=== PATIENT | female | born 1960 | race Caucasian/White ===

== ENCOUNTER 2021-01-19 14:51 | Emergency (ER) | payer SELFPAY ==
[2021-01-19 14:56] VITALS: BP 121/81; PULSE 105; RESP 16; TEMP 36.5; O2SAT 100; BMI 20.5
--- NOTE | 2021-01-19 15:29 | ED_ITS ---
Documented by User: FADI Suazo 01/20/21 07:40 HPI - Back Pain/Injury General: Chief Complaint: Back Pain/Injury Stated Complaint: Back pain right ear pain Time Seen by Provider: 01/19/21 15:27 Source: patient Mode of arrival: wheelchair Limitations: no limitations History of Present Illness: HPI Narrative: Patient is a nice 60-year-old female who presents to ED today with 2 separate complaints. Her first complaint is right ear pain. She tells me she woke up this morning and noticed her pillow had drainage on it from her ear. She then began noticing that her ear hurt. When asked she does remember yesterday feeling like her ear was muffled and was having trouble hearing. She has not inserted anything into the ear to cause trauma. She has not noticed any bleeding from the ear. Patient second complaint is left-sided back pain. Significant other with patient tells me that several days ago she was raking and doing a lot of yard work and subsequently developed pain in her back. Patient tells me pain starts in the left side of her lower back and radiates around into her left groin. She does not complain of inguinal or genital paresthesias. She has some mild radiation into her left lateral leg above the knee. She has not noticed any color or temperature changes to her lower extremities. No complaints of urinary retention or bowel incontinence. Pain seems to be worse with movement. MD elicited complaint: back pain and other (ear pain) Onset (ago): day(s) Timing: constant Severity: severe Similar Symptoms Previously: No Location: left lower back Radiation: groin Exacerbating factors: movement, walking, coughing/sneezing and lifting Associated symptoms: Reports difficulty walking (secondary to pain); Deny abdominal pain, chills, dysuria, fatigue, fever(s), hematuria, nausea or vomiting Work related injury: Yes Review of Systems Const: Denies: fever(s), chills, body aches, fatigue or malaise Eyes: Denies: change in vision, blurry vision, photophobia, eye redness, floaters or seeing flashes ENMT: Reports: ear or mastoid pain and ear discharge; Denies: throat pain, odynophagia, dental pain, nasal discharge, nasal congestion, epistaxis, post nasal drip or sinus pain Card: Denies: chest pain Resp: Denies: dyspnea GI: Denies: abdominal pain, nausea, vomiting or diarrhea : Denies: flank pain, dysuria, hematuria or pelvic pain Musc: Reports: back pain; Denies: neck pain, extremity pain, extremity swelling, joint pain or joint swelling Skin/Breast: Denies: rash Neuro: Reports: difficulty walking (secondary to pain); Denies: headache(s), numbness in extremities, weakness in extremities, sensory changes or dizziness PFSH ED PFSH: Medical History (Updated 01/19/21 @ 16:51 by FADI Suazo) Asthma Surgical History (Updated 01/19/21 @ 13:21 by HAFSA Ying) S/P tonsillectomy S/P tracheoplasty S/P tubal ligation Social History (Updated 01/19/21 @ 13:22 by HAFSA Ying) Alcohol intake: never Highest education level completed: 10th Grade Current occupational status: unemployed Physical Exam Const: COMMON NORMALS: average body habitus, patient oriented x3, no limitations, healthy appearing, alert and well nourished GENERAL APPEARANCE: cooperative and in distress (appears very uncomfortable secondary to back pain) ORIENTATION/CONSCIOUSNESS: Yes awake, Yes oriented to person, Yes oriented to place and Yes oriented to time HENMT: COMMON NORMALS: normocephalic, atraumatic, external ears normal, Normal external nose present, Normal nasal mucous membranes and turbinates present and oropharynx normal HEAD & SCALP: normal to inspection, normocephalic and atraumatic FACE & SINUS: normal facial exam NOSE: Normal external nose present and Normal nasal mucous membranes and turbinates present EXTERNAL EAR: Yes external ears normal EXTERNAL AUDITORY CANAL: Abnormal EAC present EAC laterality: right Details: edema, EAC tenderness and otic discharge (white material throughout EAC obscuring TM) TYMPANIC MEMBRANE: TM normal on the left and unable to visualize TM (R secondary to EAC edema/discharge) Neck/C-Spine: COMMON NORMALS: full ROM, no lymphadenopathy and no meningeal signs Resp: COMMON NORMALS: normal respiratory effort and clear to auscultation bilaterally AUSCULTATION: clear to auscultation bilaterally Cardio: COMMON NORMALS: regular rate and regular rhythm RATE: regular rate RHYTHM: regular rhythm GI: COMMON NORMALS: Normal to inspection, nondistended, normoactive bowel sounds present, Soft to palpation, non-tender, No hepatosplenomegaly present and no masses AUSCULTATION: Yes normoactive bowel sounds PALPATION: Yes Soft to palpation and Yes No hepatosplenomegaly present : COMMON NORMALS: Yes no CVA tenderness BLADDER/KIDNEY EXAM: Yes no CVA tenderness Back/Pelvis: COMMON NORMALS: no CVA tenderness THORACIC SPINE/UPPER BACK: Yes normal to inspection, No thoracic spinal tenderness, No paraspinal muscle tenderness and No paraspinal muscle spasm LUMBAR SPINE/LOWER BACK: Yes lumbar spinal tenderness, Yes paraspinal muscle tenderness Lumbar paraspinal muscle tenderness: left and No paraspinal muscle spasm PELVIS: Yes buttocks normal Extremity: COMMON NORMALS: normal to inspection, full ROM, capillary refill normal, no joint enlargement, no clubbing, cyanosis or edema, no calf tenderness and no pedal edema NARRATIVE EXTREMITY EXAM: normal bilateral femoral pulses and distal pulses Neuro: ELLIOTT COMA SCALE: document GCS findings [place] coma scale eye o pening: Spontaneous Elliott coma scale verbal response: Orientated Elliott coma scale motor response: Obey commands [place] coma scale total score: 15 COMMON NORMALS: patient oriented x3, moves all extremities, no focal motor deficits and no sensory deficits noted SENSORIUM/ORIENTATION: Yes alert, Yes oriented to person, Yes oriented to place and Yes oriented to time MENINGEAL SIGNS: Yes no meningeal signs Skin: COMMON NORMALS: no rashes or lesions noted GENERAL SKIN EXAM: no rashes or lesions noted TRAUMA: no lacerations or abrasions Course Vital Signs: Vital signs: Vital Signs Temperature 97.7 F 01/19/21 14:56 Pulse Rate 82 01/19/21 17:30 Respiratory Rate 16 01/19/21 17:30 Blood Pressure 153/99 01/19/21 17:30 Pulse Oximetry 96 01/19/21 17:30 MDM - Back Pain/Injury MDM Narrative: Medical decision making narrative: Patient on exam has a right otitis externa. TM is obscured. We will go ahead and place patient on Cipro HC otic drops and Augmentin. Patient received muscle relaxers, anti- inflammatories, and steroids here for her back pain. Pain down from a 10/10 to a 1/10 and she feels much better and is ready to go home at this time. No neurological defects on exam or red flags on history to prompt emergent imaging today. Recommend follow-up with her primary care provider in 3 to 5 days for reevaluation of both issues.return to ED precautions given. Discharge Plan Discharge Patient Disposition: Home Clinical Impression: Acute lumbar radiculopathy External otitis of right ear Qualifiers: Otitis externa type: unspecified type Chronicity: acute Qualified Code(s): H60.501 - Unspecified acute noninfective otitis externa, right ear Condition: Stable Prescriptions: New Cipro HC 0.2-1 % drops,suspension 3 drp otic (ear) BID 7 Days Qty: 10 RF: 0 cyclobenzaprine 10 mg tablet 10 mg PO TID Qty: 14 RF: 0 prednisone 10 mg tablet 60 mg PO DAILY 5 Days Qty: 30 RF: 0 ibuprofen 800 mg tablet 800 mg PO Q8H PRN (Reason: pain) Qty: 20 RF: 0 Augmentin 875-125 mg tablet 1 tab PO Q12H 7 Days Qty: 14 RF: 0 Discontinued naproxen 500 mg tablet 500 mg PO BID RF: 0 Discharge Orders: Discharge ED (Routine); Ordered 01/19/21 Ordered By: Emma Farrell Referrals: GALINDO Gay, MARQUETRY WORKER [Primary Care Provider] - Patient Instructions: Otitis Externa - Adult, Lumbar Radiculopathy (ED) Activity Restrictions/Additional Instructions: As we discussed we will place you on antibiotics and eardrops for the right ear infection. This complaint is unrelated to your lower back pain. We will place you on anti-inflammatories, steroids, and muscle relaxers regarding this. Please follow-up with your primary care clinic in 3 to 5 days for reevaluation. You may return to the emergency department for any worsening pain or new/concerning symptoms you may have. I hope you begin to feel better soon. Stand Alone Forms: Work/School Release Coding Level of Care Code ED Business Asst for Chg Fwd Exam Comprehensive Documented by User: Garett Gaviria MD 01/22/21 22:51 HPI - Back Pain/Injury General: Chief Complaint: Back Pain/Injury Stated Complaint: Back pain right ear pain Time Seen by Provider: 01/19/21 15:27 PFSH ED PFSH: Medical History (Updated 01/19/21 @ 16:51 by FADI Suazo) Asthma Surgical History (Updated 01/19/21 @ 13:21 by HAFSA Ying) S/P tonsillectomy S/P tracheoplasty S/P tubal ligation Social History (Updated 01/19/21 @ 13:22 by HAFSA Ying) Alcohol intake: never Highest education level completed: 10th Grade Current occupational status: unemployed Course Vital Signs: Vital signs: Vital Signs Temperature 97.7 F 01/19/21 14:56 Pulse Rate 82 01/19/21 17:30 Respiratory Rate 16 01/19/21 17:30 Blood Pressure 153/99 01/19/21 17:30 Pulse Oximetry 96 01/19/21 17:30 MDM - Back Pain/Injury MDM Narrative: Medical decision making narrative: I have reviewed this encounter performed by FADI Suazo. Garett Gaviria MD Emergency Medicine Discharge Plan Discharge Patient Disposition: Home Clinical Impression: Acute lumbar radiculopathy External otitis of right ear Qualifiers: Otitis externa type: unspecified type Chronicity: acute Qualified Code(s): H60.501 - Unspecified acute noninfective otitis externa, right ear Condition: Stable Prescriptions: New Cipro HC 0.2-1 % drops,suspension 3 drp otic (ear) BID 7 Days Qty: 10 RF: 0 cyclobenzaprine 10 mg tablet 10 mg PO TID Qty: 14 RF: 0 prednisone 10 mg tablet 60 mg PO DAILY 5 Days Qty: 30 RF: 0 ibuprofen 800 mg tablet 800 mg PO Q8H PRN (Reason: pain) Qty: 20 RF: 0 Augmentin 875-125 mg tablet 1 tab PO Q12H 7 Days Qty: 14 RF: 0 Discontinued naproxen 500 mg tablet 500 mg PO BID RF: 0 Discharge Orders: Discharge ED (Routine); Ordered 01/19/21 Ordered By: Emma Farrell Referrals: GALINDO Gay FNP [Primary Care Provider] - Patient Instructions: Otitis Externa - Adult, Lumbar Radiculopathy (ED) Activity Restrictions/Additional Instructions: As we discussed we will place you on antibiotics and eardrops for the right ear infection. This complaint is unrelated to your lower back pain. We will place you on anti-inflammatories, steroids, and muscle relaxers regarding this. Please follow-up with your primary care clinic in 3 to 5 days for reevaluation. You may return to the emergency department for any worsening pain or new/concern ing symptoms you may have. I hope you begin to feel better soon. Stand Alone Forms: Work/School Release Coding Level of Care Code ED Business Asst for Tierney Fwd Exam Comprehensive
[2021-01-19] MEDS: ketorolac 30 mg/mL INJ IVP (16:14)
[2021-01-19 16:16] VITALS: RESP 20
[2021-01-19] MEDS: morphine 4 mg/mL SDV 1 mL IVP (16:16)
[2021-01-19] MEDS: dexamethasone 10 mg/mL INJ 8 MG IV (16:20)
[2021-01-19] MEDS: orphenadrine 30 mg/mL Inj 2 mL 60 MG IV (16:21)
[2021-01-19 17:30] VITALS: BP 153/99; PULSE 82; RESP 16; O2SAT 96
== END 2021-01-19 17:31 | disposition home or self-care (01) ==
PROVIDERS: Emergency Provider Physician Assistant; PCP Nurse Practitioner Family
DX: H60.501 Unspecified acute noninfective otitis externa, right ear (principal); M54.16 Radiculopathy, lumbar region
CPT/HCPCS: 96374; 96375; 99284; J1100; J1885; J2270; J2360

== ENCOUNTER 2021-02-01 21:16 | Emergency (ER) | payer SELFPAY ==
[2021-02-01 21:17] VITALS: BP 174/85; PULSE 118; RESP 18; TEMP 37.1; O2SAT 98; BMI 19.2
--- NOTE | 2021-02-01 21:57 | PC.NURSE ---
Assisted Dr. Arias with an injection to the lower back. Betadine used to sterilized area. sterile techniques used.
--- NOTE | 2021-02-01 22:24 | ED_ITS ---
HPI - General Adult General: Chief complaint: Back Pain/Injury Stated complaint: back pain Time Seen by Provider: 02/01/21 21:31 History of Present Illness: HPI narrative: CC: Back pain HPI: [60]yo patient w/ hx of prior evaluation for L-sided lumbar back pain presenting to the ED with acutely worsening chronic atraumatic back pain x 13 days. Pain started today after patient patient twisted her back. Patients denies trauma/fall to the back, fever/chill/IVDU, LE weakness, saddle anesthesia/bowel incontinence/bladder incontinence, or hx of recent weight loss or cancer. In addition, he does not have a history of kidney stone or urinary symptoms/hx of UTI. Onset: chronic, acutely worsening symptoms x 13 days Duration: acutely 1 day, chronically 13 days Location: Back pain with mild radiation down the L leg Severity: moderate Review of Systems Narrative: Constitutional: No fever, no chills. HEENT: No vision changes CV: No chest pain, no palpitations PULM: No cough, no dyspnea. GI: No abdominal pain, no N/V/D. : No dysuria MSKEL: No edema SKIN: No new rashes, no lesions. NEURO: No headache, no focal weakness. HEME: No visible bruises PSYCH: Normal mood BACK: L-sided lumbar paraspinal pain PFSH ED PFSH: Medical History (Updated 02/01/21 @ 21:59 by Zen Arias MD) Asthma Surgical History (Updated 01/19/21 @ 13:21 by HAFSA Ying) S/P tonsillectomy S/P tracheoplasty S/P tubal ligation Social History (Updated 01/19/21 @ 13:22 by HAFSA Ying) Alcohol intake: never Highest education level completed: 10th Grade Current occupational status: unemployed Physical Exam Narrative: EXAM NARRATIVE: Head: Atraumatic Eyes: PERRL, conjunctiva without injection ENT: Mucous membrane moist NECK: Supple without lymphadenopathy LUNGS: CTA CV: RRR ABDOMEN: Soft, nontender EXTREMITY: Normal ROM, 5/5 strength in hip/knee/ankle f/e bilaterally, sensation intact bilaterally in the LE SKIN: No rash or erythema NEURO: Awake and alert. No focal motor deficits. PSYCH: Normal mood and affect. : No saddle anesthesia BACK: No midline tenderness, no step off, obvious deformity, hip stable, []paraspinal lumbar tenderness with radiation to the [] side Procedures Nerve Block Nerve Block 1: Time out performed: Yes Local Anesthetic: lidocaine 1%, bupivacaine 0.5% and with epi Amount of anesthesia used (mL): 10 Side: left Nerve Blocks: other (paraspinal trigger point injection) Procedure Successful: Yes Patient Tolerated Procedure: well Complications: none Additional Comments: In service was successfully cleaned with chlorhexidine. Sterile rules were used for the procedure. Laceration tray was opened. 40 mg of Kenalog was mixed with 5 mL of 0.5 ropivacaine with epi and 5ml 1% lidocaine with epi. Mixture was sterilely injected to multiple areas of knots on the left paraspinal back. Patient has significant relief of pain. Post injection, the area was cleared again with ChloraPrep and then sterile saline. Course Vital Signs: Vital signs: Vital Signs Temperature 98.7 F 02/01/21 21:17 Pulse Rate 118 H 02/01/21 21:17 Respiratory Rate 20 H 02/01/21 22:27 Blood Pressure 174/85 02/01/21 21:17 Pulse Oximetry 98 02/01/21 21:17 MDM - General Adult MDM Narrative: Medical decision making narrative: [60]yo patient w/ hx of chronic lumbar pain with proximal radiation to the L side presenting to the ED with acute worsening lumbar pain x 3 hrss, now has pain with ambulation. Neurological exam including LE exam intact. The Patient is able to bear weight on legs and ambulate with moderate pain. No red flags of IVDU/fever, hx or symptomatology of cancer w/ mets to the bones, neurological findings or bowel or bladder incontinence, or acute trauma/fracture of the vertebral columns. No hx of kidney stone to suggest renal colic. No hx of smoking or HTN to suggest AAA. Do not suspect back fracture since pain is paraspinal and atraumatic today. Intervention: Perococet, lidocaine patch, toradol, and trigger point injection (please refer to procedure note) [10:30pm] On reassessment, the patient reports the pain is significantly improved with medications. Patient is now able to ambulate in the ED with only mild pain. At the present time, I have discussed the importance for the patient to follow up with orthopedics CHARLIE and the patient agrees. No suspicion for acute cord compression at this time. Patient is able to ambulate with a walker. Rx: Tylenol, norflex, lidocaine patch, menthol cream PRN back pain I have given patient follow up with our case folder to be seen by our outpatient Orthopedics spine since patient continues to have persistent back pain. Patient aware of a call from our case folder to schedule for appointment(s) and verbalizes understanding of the importance of following up. Disposition: Discharge. Patient is given SRP for any focal weakness, intractable pain, fever/chill, any signs of bowel or bladder incontinence. Patient is instructed to follow up with the orthopedics provider. I have provided an addit ional orthopedic referral for the patient should the patient need it. Patient verbalizes understanding and plans to do so in the next fews. Discharge Plan Discharge Patient Disposition: Home Clinical Impression: Back pain, Radiculopathy Condition: Stable Prescriptions: New acetaminophen 500 mg tablet 500 mg PO Q6H PRN (Reason: pain) 5 Days Qty: 20 RF: 0 lidocaine 5 % adhesive patch,medicated 1 patch topical DAILY PRN (Reason: pain) 10 Days Qty: 10 RF: 0 orphenadrine citrate 100 mg tablet extended release 100 mg PO BID PRN (Reason: pain) 10 Days Qty: 20 RF: 0 Biofreeze (menthol) 5 % gel 1 ea topical BID PRN (Reason: pain) 10 Days Qty: 1 RF: 0 No Action cyclobenzaprine 10 mg tablet 10 mg PO TID Qty: 14 RF: 0 ibuprofen 800 mg tablet 800 mg PO Q8H PRN (Reason: pain) Qty: 20 RF: 0 Discharge Orders: Discharge ED (Routine); Ordered 02/01/21 Ordered By: Zen Arias Referrals: GALINDO Gay, PLANNING MANAGEMENT IT SPECIALIST [Primary Care Provider] - Discharge Diet: Advance as tolerated Discharge Activity: Resume usual activity Patient Instructions: Back Pain (ED) Activity Restrictions/Additional Instructions: Our case folder will have you follow-up with Orthopedic spine in the next few days for severe back pain. You would be expected to have a phone call with our case folder who will put you on the schedule. Your medicine as instructed. Come back to the emergency you have intractable came pain, weakness in the legs, fever or chills, pain at the injection sites, or new concerning complaints Coding Level of Care Code ED Group Sales Coordinator for Tierney Shelley
[2021-02-01 22:27] VITALS: RESP 20
[2021-02-01] MEDS: oxyCODONE-APAP 5-325 mg Tablet 1 TAB PO (22:27)
[2021-02-01] MEDS: ketorolac 30 mg/mL INJ IM (22:27)
[2021-02-01] MEDS: triamcinolone 40 mg/mL SDV IM (22:59)
[2021-02-01 23:00] VITALS: BP 156/99; PULSE 100; RESP 20; O2SAT 100
--- NOTE | 2021-02-02 11:00 | DCPLANNER ---
regional retail sales manager had message to schedule a follow up appointment for patient with ortho. regional retail sales manager called the ortho clinic, spoke with Kathryn, gave clinic patients information. regional retail sales manager was told that patients information would be printed and reviewed. Clinic will call patient with appointment information.
--- NOTE | 2021-02-09 14:20 | DCPLANNER ---
forensic manager had message to speak with patient about getting established with a primary care physician. forensic manager called phone number [phone], unable to speak with patient at this time, and unable to leave a voicemail for patient. Patients phone is not accepting calls at this time.
--- NOTE | 2021-02-16 05:50 | DCPLANNER ---
Patient had a follow up appointment scheduled for 02.12.21 with ortho - patient did not attend appointment.
== END 2021-02-01 22:57 | disposition home or self-care (01) ==
PROVIDERS: Emergency Provider Emergency Medicine; PCP Nurse Practitioner Family
DX: M54.10 Radiculopathy, site unspecified (principal); M54.9 Dorsalgia, unspecified
CPT/HCPCS: 99283; E0114; J1885; J3301; J3490